=== PATIENT | female | born 1960 | race Caucasian/White ===

== ENCOUNTER 2016-08-01 09:07 | Outpatient (CLI) | payer BC | END 2016-08-01 09:08 | disposition home or self-care (01) | DX: Z00.00 Encounter for general adult medical examination without abnormal findings (principal) ==

== ENCOUNTER 2016-10-03 11:45 | Outpatient (CLI) | payer BC | END 2016-10-03 11:46 | disposition home or self-care (01) | DX: N39.0 Urinary tract infection, site not specified (principal) ==

== ENCOUNTER 2016-10-07 21:10 | Outpatient (CLI) | payer BC | END 2016-10-07 21:11 | disposition home or self-care (01) | DX: N39.0 Urinary tract infection, site not specified (principal) ==

== ENCOUNTER 2016-10-26 18:55 | Emergency (ER) | payer BC ==
[2016-10-26] MEDS ORDERED: cefTRIAXone 1 GM in SODIUM CHLORIDE 0.9% MINIBAG 100 ML IV STA (20:31)
[2016-10-26] MEDS ORDERED: SODIUM CHLORIDE 0.9% 500 ML IV ONE (20:32)
[2016-10-26] MEDS ORDERED: cefTRIAXone 1 GM VIAL ONE (20:42)
== END 2016-10-26 21:34 | disposition home or self-care (01) ==
DX: N39.0 Urinary tract infection, site not specified (principal); E27.1 Primary adrenocortical insufficiency; Z98.890 Other specified postprocedural states

== ENCOUNTER 2016-10-28 16:00 | Outpatient (CLI) | payer BC | END 2016-10-28 16:01 | disposition home or self-care (01) | DX: N39.0 Urinary tract infection, site not specified (principal) ==

== ENCOUNTER 2016-10-30 17:34 | Emergency (ER) | payer BC ==
[2016-10-30] MEDS ORDERED: SODIUM CHLORIDE 0.9% 1,000 ML IV ONE ×2 (18:37→19:09)
[2016-10-30] MEDS ORDERED: HYDROCORTISONE SUCCINATE 100 MG/2 ML VIAL IVP STA (18:37)
[2016-10-30] MEDS ORDERED: HYDROmorphone 1 MG/ML SYRINGE IVP STA (18:37)
[2016-10-30] MEDS ORDERED: HYDROmorphone 1 MG/ML SYRINGE ONE (19:09)
[2016-10-30] MEDS ORDERED: HYDROCORTISONE SUCCINATE 100 MG/2 ML VIAL IVP ONE (19:09)
== END 2016-10-30 20:29 | disposition home or self-care (01) ==
DX: R10.30 Lower abdominal pain, unspecified (principal); E27.1 Primary adrenocortical insufficiency; E05.00 Thyrotoxicosis with diffuse goiter without thyrotoxic crisis or storm; J45.909 Unspecified asthma, uncomplicated; M79.7 Fibromyalgia
CPT/HCPCS: 36415; 80053; 81003; 83690; 85025; 96361; 96374; 96375; 99284; J1170

== ENCOUNTER 2016-12-24 14:15 | Outpatient (CLI) | payer BC | END 2016-12-24 14:16 | disposition home or self-care (01) | LOC: LAB.WCP 14:15 | PROVIDERS: ATTEND Family Medicine | DX: N39.0 Urinary tract infection, site not specified (principal) | CPT/HCPCS: 87086 ==

== ENCOUNTER 2017-02-02 11:45 | Outpatient (CLI) | payer BC | END 2017-02-02 11:46 | disposition home or self-care (01) | LOC: LAB.WCP 11:45 | PROVIDERS: ATTEND Family Medicine | DX: N39.0 Urinary tract infection, site not specified (principal) | CPT/HCPCS: 87077; 87086 ==

== ENCOUNTER 2017-03-04 15:04 | Outpatient (CLI) | payer BC | END 2017-03-04 15:05 | disposition home or self-care (01) | LOC: LAB.R 15:04 | PROVIDERS: ATTEND Physician Assistant Medical | DX: N39.0 Urinary tract infection, site not specified (principal) | CPT/HCPCS: 87077; 87086 ==

== ENCOUNTER 2017-03-18 14:47 | Outpatient (CLI) | payer BC ==
[2017-03-18 19:24] LABS: HEMOGLOBIN A1C 0.83 g/dL
== END 2017-03-18 14:48 | disposition home or self-care (01) ==
LOC: LAB.WCP 14:47
PROVIDERS: ATTEND Physician Assistant Medical
DX: E11.9 Type 2 diabetes mellitus without complications (principal)
CPT/HCPCS: 36415; 82043; 83036

== ENCOUNTER 2017-03-25 12:48 | Outpatient (CLI) | payer BC ==
[2017-03-25 13:15] LABS: HCT - HEMATOCRIT 39.7 % (37.0-47.0); HGB - HEMOGLOBIN 13.3 g/dL (12.0-16.0); MEAN CORPUSCULAR HEMOGLOBIN 30.3 pg (27.0-31.0); MEAN CORPUSCULAR HGB CONC 33.5 g/dL (32.0-36.0); MEAN CORPUSCULAR VOLUME 90.4 fL (81.0-99.0); MEAN PLATELET VOLUME 7.5 fL (7.9-10.8); RED BLOOD COUNT 4.4 10^6/uL (4.20-5.40); RED CELL DISTRIBUTION WIDTH 13.4 % (12.0-15.0); WHITE BLOOD COUNT 11.5 x10^3/uL (4.8-10.8)
[2017-03-25 13:25] LABS: CALCIUM 9.4 mg/dL (8.5-10.3); CREATININE 0.8 mg/dL (0.4-1.0); POTASSIUM 3.9 mmol/L (3.5-5.0)
[2017-03-25 14:00] LABS: HEMOGLOBIN A1C 0.75 g/dL
== END 2017-03-25 12:49 | disposition home or self-care (01) ==
LOC: LAB 12:48
PROVIDERS: ATTEND Orthopaedic Surgery
DX: Z01.812 Encounter for preprocedural laboratory examination (principal); R73.9 Hyperglycemia, unspecified
CPT/HCPCS: 36415; 80048; 83036

== ENCOUNTER 2017-05-29 15:30 | Outpatient (CLI) | payer BC ==
--- NOTE | 2017-05-29 17:00 | XRAY Report ---
EXAM: LEFT RIB RADIOGRAPHY EXAM DATE: 05/29/2017 04:09 PM. CLINICAL HISTORY: Contusion injury, left anterior rib pain. COMPARISON: No prior rib x-ray for comparison; chest x-ray on 08/20/2013. TECHNIQUE: 1 view of the chest and 2 views of the ribs. FINDINGS: Bones: No discrete left rib fracture or bone lesion. Lungs: No focal opacities. No pneumothorax. No pleural effusions. Mediastinum: Heart and mediastinal contours are unremarkable. Other: Status post cholecystectomy, disk fusion in the mid lower cervical spine and posterior spinal fusion visualized. IMPRESSION: Negative chest and left rib radiography. [facility] Referring Provider Line: [phone] SITE ID: [id number]
== END 2017-05-29 15:31 | disposition home or self-care (01) ==
LOC: DI 15:30
PROVIDERS: ATTEND Physician Assistant Medical
DX: S20.212A Contusion of left front wall of thorax, initial encounter (principal)

== ENCOUNTER 2017-06-15 10:20 | Outpatient (CLI) | payer BC ==
[2017-06-15 13:21] LABS: CALCIUM 9.3 mg/dL (8.5-10.3); CREATININE 0.8 mg/dL (0.4-1.0); POTASSIUM 4.2 mmol/L (3.5-5.0)
[2017-06-15 13:49] LABS: HEMOGLOBIN A1C 0.66 g/dL
== END 2017-06-15 10:21 | disposition home or self-care (01) ==
LOC: LAB.WCP 10:20
PROVIDERS: ATTEND Physician Assistant Medical
DX: E11.9 Type 2 diabetes mellitus without complications (principal)
CPT/HCPCS: 36415; 80048; 83036

== ENCOUNTER 2018-08-03 08:00 | Outpatient (CLI) | payer BC ==
[2018-08-03 14:02] LABS: BASOPHILS % (AUTO) 0.7 %; EOSINOPHILS # (AUTO) 0.2 10^3/uL (0.0-0.7); EOSINOPHILS % (AUTO) 2.7 %; HGB - HEMOGLOBIN 14.5 g/dL (12.0-16.0); LYMPHOCYTES # (AUTO) 3.4 10^3/uL (1.5-3.5); LYMPHOCYTES % (AUTO) 53.3 %; MEAN CORPUSCULAR HEMOGLOBIN 30.1 pg (27.0-31.0); MEAN CORPUSCULAR HGB CONC 34.4 g/dL (32.0-36.0); MEAN CORPUSCULAR VOLUME 87.5 fL (81.0-99.0); MEAN PLATELET VOLUME 8.5 fL (7.9-10.8); MONOCYTES # (AUTO) 0.5 10^3/uL (0.0-1.0); MONOCYTES % (AUTO) 7.3 %; NEUTROPHILS # (AUTO) 2.3 10^3/uL (1.5-6.6); PLT - PLATELET COUNT 353 10^3/uL (130-450); RED BLOOD COUNT 4.82 10^6/uL (4.20-5.40); WHITE BLOOD COUNT 6.3 x10^3/uL (4.8-10.8)
[2018-08-03 14:06] LABS: ALBUMIN 4.2 g/dL (3.2-5.5); ALBUMIN/GLOBULIN RATIO 1.4 (1.0-2.2); ALKALINE PHOSPHATASE 75 IU/L (42-121); ALT ALANINE AMINOTRANSFERASE 28 IU/L (10-60); AST ASPARTATE AMINOTRANSFERASE 31 IU/L (10-42); BILIRUBIN,TOTAL 0.5 mg/dL (0.2-1.0); BUN - BLOOD UREA NITROGEN 8 mg/dL (6-20); CALCIUM 9.5 mg/dL (8.5-10.3); CARBON DIOXIDE - CO2 24 mmol/L (21-32); CHLORIDE 105 mmol/L (101-111); CHOL/HDL RATIO 4.5 (<4.4); CHOLESTEROL 229 mg/dL; CREATININE 0.7 mg/dL (0.4-1.0); GFR - MDRD 87 (>89); GLUCOSE 108 mg/dL (70-100); HDL CHOLESTEROL 51 mg/dL; LDL CHOLESTEROL,CALCULATED 149 mg/dL; LDL/HDL RATIO 2.9 (<4.4); SODIUM 138 mmol/L (135-145); TOTAL PROTEIN 7.2 g/dL (6.7-8.2); VLDL CHOLESTEROL 29 mg/dL
[2018-08-03 14:48] LABS: FREE T4 (FREE THYROXINE) 1.06 ng/dL (0.58-1.64)
[2018-08-03 15:24] LABS: HB2 TOTAL 15.6 g/dL; HEMOGLOBIN A1C 0.59 g/dL; HEMOGLOBIN A1C % 5.6 % (4.6-6.2)
== END 2018-08-03 23:59 | disposition home or self-care (01) ==
LOC: LAB.WCP 08:00
PROVIDERS: ATTEND Physician Assistant
DX: R74.8 Abnormal levels of other serum enzymes (principal); E11.9 Type 2 diabetes mellitus without complications; E78.5 Hyperlipidemia, unspecified; E03.9 Hypothyroidism, unspecified
CPT/HCPCS: 36415; 80053; 80061; 82043; 83036; 83721; 84439; 84443; 85025

== ENCOUNTER 2018-10-15 16:56 | Emergency (ER) | payer BC ==
--- NOTE | 2018-10-15 18:19 | ED Physician Documentation ---
PD HPI URI - Stated complaint Stated Complaint: FEVER/SOA - Chief complaint Chief Complaint: Resp - History obtained from History obtained from: Patient - History of Present Illness Timing - onset: Yesterday Timing details: Abrupt onset, Still present Associated symptoms: Fever, Nasal congestion, Dry cough, NVD. No: Sore throat Contributing factors: No: Sick contact Improves by: No: Rest Similar symptoms before: Has not had sx before Review of Systems Constitutional: reports: Fever, Chills Nose: reports: Congestion. denies: Rhinorrhea / runny nose Throat: denies: Sore throat Respiratory: reports: Dyspnea, Cough GI: reports: Nausea, Diarrhea. denies: Abdominal Pain Skin: denies: Rash Neurologic: reports: Generalized weakness. 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 : None HEENT: None Psych: None Musculoskeletal: Fibromyalgia Derm: None - Past Surgical History Past Surgical History: Yes General: Cholecystectomy, Appendectomy Ortho: Spine surgery /SEX CRIMES DETECTIVE: section, Tubal ligation - Present Medications Home Medications: Ambulatory Orders Medication Instructions Recorded Confirmed Albuterol Sulfate [Accuneb] 10/11/13 11/28/14 Fluticasone/Salmeterol [Advair BID 10/11/13 11/28/14 500-50 Diskus] Levothyroxine Sodium [Synthroid] 125 mcg PO DAILY 10/11/13 11/28/14 Lidocaine Patch 5% [Lidoderm Patch] 1 each TOP DAILY PRN 10/11/13 11/28/14 Montelukast [Singulair] 1 tab DAILY 10/11/13 11/28/14 Omeprazole [PriLOSEC] 10 mg PO BIDAC 10/11/13 11/28/14 Promethazine Oral Soln [Phenergan] 0 mg PO ONCE 10/11/13 11/28/14 Duloxetine HCl [Cymbalta] 1 tab DAILY 09/24/14 11/28/14 Hydrocortisone [Cortef] BID 09/24/14 11/28/14 Ipratropium/Albuterol [Combivent PRN 09/24/14 11/28/14 Respimat] Benzonatate [Tessalon Perle] 100 mg PO TID PRN #30 capsule 10/15/18 Dexamethasone [Decadron] 4 mg PO DAILY #5 tablet 10/15/18 Hydrocodone/Acetaminophen [[place] 1 each PO Q6H PRN #15 tablet 10/15/18 5-325 Tablet] Oseltamivir [Tamiflu] 75 mg PO BID #10 capsule 10/15/18 - Allergies Allergies/Adverse Reactions: Allergies Allergy/AdvReac Type Severity Reaction Status Date / Time azithromycin [From Zithromax] Allergy Severe Rash Verified 11/28/14 21:37 codeine Allergy Severe Itching Verified 11/28/14 21:37 nitrofurantoin Allergy Severe Itching Verified 11/28/14 21:37 [From Macrobid] nitrofurantoin Allergy Severe Itching Verified 11/28/14 21:37 macrocrystalline * [From Macrobid] morphine AdvReac Respiratory Verified 10/15/18 17:01 - Social History Does the pt smoke?: No Smoking Status: Never smoker Does the pt drink ETOH?: No Does the pt have substance abuse?: No - Immunizations Immunizations are current?: No Immunizations: TDAP >10years/unknown - POLST Patient has POLST: No PD ED PE NORMAL - Vitals Vital signs reviewed: Yes - General General: Alert and oriented X 3, Well developed/nourished - HEENT HEENT: Pharynx benign - Neck Neck: Supple, no meningeal sign, No adenopathy - Cardiac Cardiac: RRR, No murmur - Respiratory Respiratory: Clear bilaterally - Abdomen Abdomen: Soft, Non tender - Back Back: No CVA TTP - Derm Derm: Normal color, Warm and dry - Extremities Extremities: Normal ROM s pain, No edema, No calf tenderness / cord - Neuro Neuro: Alert and oriented X 3, No motor deficit, Normal speech Results - Vitals Vitals: Vital Signs - 24 hr 10/15/18 10/15/18 10/15/18 17:00 19:12 19:18 Temperature 36.7 C Heart Rate 111 H 89 Respiratory 20 20 18 Rate Blood Pressure 148/81 H O2 Saturation 95 10/15/18 10/15/18 20:05 20:13 Temperature Heart Rate 93 Respiratory 18 18 Rate Blood Pressure 123/52 L O2 Saturation 98 Oxygen O2 Source Room air - Labs Labs: Laboratory Tests 10/15/18 19:15 Influenza A (Rapid) POSITIVE H Influenza B (Rapid) Negative PD MEDICAL DECISION MAKING - ED course Complexity details: considered differential, d/w patient Departure - Departure Disposition: 01 Home, Self Care Clinical Impression: Influenza A, Chronic use of steroids Exacerbation of asthma Qualifiers: Asthma severity: mild Asthma persistence: intermittent Qualified Code(s): J45.21 - Mild intermittent asthma with (acute) exacerbation Condition: Stable Record reviewed to determine appropriate education?: Yes Instructions: ED Flu Follow-Up: Julia Lazo PA-C [Primary Care Provider] - Prescriptions: Benzonatate [Tessalon Perle] 100 mg PO TID PRN #30 capsule PRN Reason: Cough Dexamethasone [Decadron] 4 mg PO DAILY #5 tablet Hydrocodone/Acetaminophen [[place] 5-325 Tablet] 1 each PO Q6H PRN #15 tablet PRN Reason: Pain Oseltamivir [Tamiflu] 75 mg PO BID #10 capsule Comments: Continue usual medications. Add Tamiflu antiviral for the blunting the flu symptoms. Decadron supplemental steroid daily for 5 more days. Tessalon if needed for cough. Hydrocodone if needed for cough/pain. Continue usual inhaler or nebulizers 4 times a day and extra times as needed over the next week or so. Discharge Date/Time: 10/15/18 20:15
[2018-10-15] MEDS ORDERED: IPRATROPIUM/ALBUTEROL 3 ML NEB INH STA (18:56)
[2018-10-15] MEDS ORDERED: BENZONATATE 100 MG CAPSULE PO STA (18:56)
[2018-10-15] MEDS ORDERED: HYDROcod/ACETAM 5/325 MG TABLET PO STA (18:56)
[2018-10-15] MEDS ORDERED: DEXAMETHASONE 10 MG/ML VIAL PO STA (18:57)
[2018-10-15] MEDS ORDERED: CHERRY SYRUP 10 ML UDC PO ONE (19:13)
[2018-10-15] MEDS ORDERED: cephALEXin 250 MG CAPSULE PO STA (19:32)
[2018-10-15] MEDS ORDERED: OSELTAMIVIR 75 MG CAPSULE PO STA (19:44)
--- NOTE | 2018-10-15 19:55 | XRAY Report ---
Reason: cough and wheezing Procedure Date: 10/15/2018 Accession Number: [id number] / [id number] Procedure: XR - Chest 2 View X-Ray CPT Code: 34885 FULL RESULT: EXAM: CHEST RADIOGRAPHY EXAM DATE: 10/15/2018 07:09 PM. CLINICAL HISTORY: Cough and wheezing. COMPARISON: CHEST 2 VIEW PA/LAT 12/25/2017 11:32 AM. TECHNIQUE: 2 views. FINDINGS: Heart size is normal. No consolidation, pleural effusion, or pneumothorax. Partially visualized postoperative changes to the cervical and lumbar spines. Cholecystectomy clips project over the right upper abdominal quadrant. IMPRESSION: No acute cardiopulmonary findings. [facility]
[2018-10-15 20:06] VITALS: BP 123/52
== END 2018-10-15 20:15 | disposition home or self-care (01) ==
LOC: ED 16:56
DX: J10.1 Influenza due to other identified influenza virus with other respiratory manifestations (principal); J45.21 Mild intermittent asthma with (acute) exacerbation; Z79.52 Long term (current) use of systemic steroids
CPT/HCPCS: 71046; 87275; 87276; 94640; 99283; A9270

== ENCOUNTER 2019-04-06 08:00 | Outpatient (CLI) | payer BC ==
[2019-04-06 18:33] LABS: BUN - BLOOD UREA NITROGEN 10 mg/dL (6-20); CALCIUM 9.6 mg/dL (8.5-10.3); CARBON DIOXIDE - CO2 25 mmol/L (21-32); CHLORIDE 98 mmol/L (101-111); CHOL/HDL RATIO 3.7 (<4.4); CHOLESTEROL 219 mg/dL; CREATININE 0.8 mg/dL (0.4-1.0); GFR - MDRD 74 (>89); GLUCOSE 95 mg/dL (70-100); HDL CHOLESTEROL 60 mg/dL; LDL CHOLESTEROL,CALCULATED 136 mg/dL; LDL/HDL RATIO 2.3 (<4.4); SODIUM 138 mmol/L (135-145); VLDL CHOLESTEROL 23 mg/dL
[2019-04-06 18:37] LABS: HB2 TOTAL 15.2 g/dL; HEMOGLOBIN A1C 0.59 g/dL; HEMOGLOBIN A1C % 5.7 % (4.6-6.2)
== END 2019-04-06 23:59 | disposition home or self-care (01) ==
LOC: LAB.WCP 08:00
PROVIDERS: ATTEND Physician Assistant Medical
DX: E11.9 Type 2 diabetes mellitus without complications (principal); E03.9 Hypothyroidism, unspecified
CPT/HCPCS: 36415; 80048; 80061; 83036; 83721; 84443

== ENCOUNTER 2019-09-08 08:00 | Outpatient (CLI) | payer BC ==
[2019-09-08 18:45] LABS: HEMOGLOBIN A1C 0.59 g/dL; HEMOGLOBIN A1C % 5.7 % (4.6-6.2)
== END 2019-09-08 23:59 | disposition home or self-care (01) ==
LOC: LAB.WCP 08:00
PROVIDERS: ATTEND Physician Assistant Medical
DX: E11.9 Type 2 diabetes mellitus without complications (principal)
CPT/HCPCS: 36415; 83036

== ENCOUNTER 2019-10-12 17:12 | Outpatient (CLI) | payer BC | END 2019-10-12 17:13 | disposition home or self-care (01) | LOC: COV 17:12 | PROVIDERS: ATTEND Family Medicine | DX: R50.9 Fever, unspecified (principal) ==

== ENCOUNTER 2019-12-05 08:00 | Outpatient (CLI) | payer BC ==
[2019-12-05 14:51] LABS: HB2 TOTAL 14.7 g/dL; HEMOGLOBIN A1C 0.53 g/dL; HEMOGLOBIN A1C % 5.4 % (4.6-6.2)
[2019-12-05 14:59] LABS: ALBUMIN/GLOBULIN RATIO 1.4 (1.0-2.2); ALKALINE PHOSPHATASE 64 IU/L (42-121); ALT ALANINE AMINOTRANSFERASE 20 IU/L (10-60); AST ASPARTATE AMINOTRANSFERASE 25 IU/L (10-42); BILIRUBIN,TOTAL 0.5 mg/dL (0.2-1.0); BUN - BLOOD UREA NITROGEN 11 mg/dL (6-20); CALCIUM 9.5 mg/dL (8.5-10.3); CARBON DIOXIDE - CO2 25 mmol/L (21-32); CHLORIDE 107 mmol/L (101-111); CHOL/HDL RATIO 2.4 (<4.4); CHOLESTEROL 139 mg/dL; CREATININE 0.7 mg/dL (0.4-1.0); GLUCOSE 86 mg/dL (70-100); HDL CHOLESTEROL 59 mg/dL; LDL CHOLESTEROL,CALCULATED 61 mg/dL; SODIUM 140 mmol/L (135-145); TOTAL PROTEIN 6.8 g/dL (6.7-8.2); VLDL CHOLESTEROL 19 mg/dL
== END 2019-12-05 23:59 | disposition home or self-care (01) ==
LOC: LAB.WCP 08:00
PROVIDERS: ATTEND Physician Assistant Medical
DX: E11.9 Type 2 diabetes mellitus without complications (principal)
CPT/HCPCS: 36415; 80053; 80061; 83036; 83721

== ENCOUNTER 2020-05-21 16:26 | Outpatient (CLI) | payer BC | END 2020-05-21 16:27 | disposition home or self-care (01) | LOC: COV 16:26 | PROVIDERS: ATTEND Family Medicine | DX: R05 Cough (principal); Z20.828 Contact with and (suspected) exposure to other viral communicable diseases; R68.83 Chills (without fever); R53.83 Other fatigue; R09.81 Nasal congestion; J02.9 Acute pharyngitis, unspecified; R43.9 Unspecified disturbances of smell and taste; R11.2 Nausea with vomiting, unspecified; M79.10 Myalgia, unspecified site ==

== ENCOUNTER 2020-05-23 10:10 | Emergency (ER) | payer BC ==
[2020-05-23] MEDS ORDERED: ACETAMINOPHEN 325 MG TABLET PO STA (10:34)
--- NOTE | 2020-05-23 10:36 | ED Physician Documentation ---
PD HPI DYSPNEA - Stated complaint Stated Complaint: CHEST PX, SOA, FEVER - Chief complaint Chief Complaint: Resp - History obtained from History obtained from: Patient - Additional information Additional information: 59-year-old woman with history of pneumonitis, asthma presents with 2 weeks of shortness of breath, dry cough, particularly bad over the last 3 or 4 days. She reports low-grade fevers in the 99 range. Cough is without production. She has central chest pain starting last night and constant. Nonradiating. Not worse with exertion. Denies pedal edema or calf pain. Review of Systems Ten Systems: 10 systems reviewed and negative Constitutional: reports: Fever, Chills, Fatigue Nose: denies: Rhinorrhea / runny nose Throat: denies: Sore throat Cardiac: reports: Chest pain / pressure. denies: Palpitations Respiratory: reports: Dyspnea, Cough. 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: section, Tubal ligation - Present Medications Home Medications: Ambulatory Orders Medication Instructions Recorded Confirmed Albuterol Sulfate [Accuneb] 10/11/13 11/28/14 Fluticasone/Salmeterol [Advair BID 10/11/13 11/28/14 500-50 Diskus] Levothyroxine Sodium [Synthroid] 125 mcg PO DAILY 10/11/13 11/28/14 Lidocaine Patch 5% [Lidoderm Patch] 1 each TOP DAILY PRN 10/11/13 11/28/14 Montelukast [Singulair] 1 tab DAILY 10/11/13 11/28/14 Omeprazole [PriLOSEC] 10 mg PO BIDAC 10/11/13 11/28/14 Promethazine Oral Soln [Phenergan] 0 mg PO ONCE 10/11/13 11/28/14 Duloxetine HCl [Cymbalta] 1 tab DAILY 09/24/14 11/28/14 Hydrocortisone [Cortef] BID 09/24/14 11/28/14 Ipratropium/Albuterol [Combivent PRN 09/24/14 11/28/14 Respimat] Benzonatate [Tessalon Perle] 100 mg PO TID PRN #30 capsule 10/15/18 Hydrocodone/Acetaminophen [[place] 1 each PO Q6H PRN #15 tablet 10/15/18 5-325 Tablet] Oseltamivir [Tamiflu] 75 mg PO BID #10 capsule 10/15/18 dexAMETHasone [Decadron] 4 mg PO DAILY #5 tablet 10/15/18 Doxycycline Hyclate 100 mg PO BID #14 tablet. 05/23/20 Hydrocodone/Acetaminophen 1 - 2 tab PO Q6H PRN #15 tablet 05/23/20 [Hydrocodone-Acetamin 5-325 mg] predniSONE [Deltasone] 20 mg PO [id number] #21 tab 05/23/20 - Allergies Allergies/Adverse Reactions: Allergies Allergy/AdvReac Type Severity Reaction Status Date / Time azithromycin [From Zithromax] Allergy Severe Rash Verified 11/28/14 21:37 codeine Allergy Severe Itching Verified 11/28/14 21:37 nitrofurantoin Allergy Severe Itching Verified 11/28/14 21:37 [From Macrobid] nitrofurantoin Allergy Severe Itching Verified 11/28/14 21:37 macrocrystalline * [From Macrobid] grass pollen Allergy Unknown Verified 05/23/20 10:18 morphine AdvReac Respiratory Verified 10/15/18 17:01 - Social History Does the pt smoke?: No Smoking Status: Never smoker Does the pt drink ETOH?: No Does the pt have substance abuse?: No - Immunizations Immunizations are current?: No Immunizations: TDAP >10years/unknown - POLST Patient has POLST: No PD ED PE NORMAL - Vitals Vital signs reviewed: Yes - General General: Alert and oriented X 3, No acute distress - HEENT HEENT: PERRL, EOMI - Neck Neck: Supple, no meningeal sign, No bony TTP - Cardiac Cardiac: RRR, No murmur - Respiratory Respiratory: No respiratory distress, Clear bilaterally - Abdomen Abdomen: Non tender - Back Back: No spinal TTP - Extremities Extremities: No edema, No calf tenderness / cord - Neuro Neuro: Alert and oriented X 3, Normal speech Results - Vitals Vitals: Vital Signs - 24 hr 05/23/20 05/23/20 10:13 11:49 Temperature 37.1 C 37.2 C Heart Rate 95 80 Respiratory 20 18 Rate Blood Pressure 133/82 H 137/50 H O2 Saturation 99 97 Oxygen O2 Source Room air - EKG (time done) 1016 Rate: Rate (enter#) (88) Rhythm: NSR [place]: Normal Intervals: Normal CT QRS: Normal Ischemia: Normal ST segments Computer interpretation: Agree with computer - Labs Labs: Laboratory Tests 05/23/20 05/23/20 05/23/20 10:49 10:49 10:49 WBC 8.0 RBC 4.86 Hgb 15.0 Hct 43.5 MCV 89.5 MCH 30.9 MCHC 34.5 RDW 12.2 Plt Count 339 MPV 9.6 Neut # (Auto) 5.5 Lymph # (Auto) 1.5 [place] # (Auto) 0.8 Eos # (Auto) 0.1 Baso # (Auto) 0.1 Absolute Nucleated RBC 0.00 Nucleated RBC % 0.0 D-Dimer Sodium 140 Potassium 4.0 Chloride 104 Carbon Dioxide 23 Anion Gap 13.0 BUN 13 Creatinine 0.7 Estimated GFR (MDRD) 86 L Glucose 106 H Calcium 9.5 Total Bilirubin 0.7 AST 31 ALT 30 Alkaline Phosphatase 68 Troponin I High Sens < 2.3 L Total Protein 7.4 Albumin 4.2 Globulin 3.2 Albumin/Globulin Ratio 1.3 Lipase 49 Nasal Adenovirus (PCR) Nasal B. parapertussis DNA (PCR) Nasal Coronavir 229E PCR Nasal Coronavir HKU1 PCR Nasal Coronavir NL63 PCR Nasal Coronavir OC43 PCR Nasal Enterovir/Rhinovir PCR Nasal Influenza B PCR Nasal Influenza A PCR Nasal Parainfluen 1 PCR Nasal Parainfluen 2 PCR Nasal Parainfluen 3 PCR Nasal Parainfluen 4 PCR Nasal RSV (PCR) Nasal B.pertussis DNA PCR Nasal C.pneumoniae (PCR) [place] Human Metapneumo PCR Nasal M.pneumoniae (PCR) Nasal SARS-CoV-2 (PCR) 05/23/20 05/23/20 10:49 10:49 WBC RBC Hgb Hct MCV MCH MCHC RDW Plt Count MPV Neut # (Auto) Lymph # (Auto) [place] # (Auto) Eos # (Auto) Baso # (Auto) Absolute Nucleated RBC Nucleated RBC % D-Dimer 283.0 H Sodium Potassium Chloride Carbon Dioxide Anion Gap BUN Creatinine Estimated GFR (MDRD) Glucose Calcium Total Bilirubin AST ALT Alkaline Phosphatase Troponin I High Sens Total Protein Albumin Globulin Albumin/Globulin Ratio Lipase Nasal Adenovirus (PCR) NOT DETECTED Nasal B. parapertussis DNA (PCR) NOT DETECTED Nasal Coronavir 229E PCR NOT DETECTED Nasal Coronavir HKU1 PCR NOT DETECTED Nasal Coronavir NL63 PCR NOT DETECTED Nasal Coronavir OC43 PCR NOT DETECTED Nasal Enterovir/Rhinovir PCR NOT DETECTED Nasal Influenza B PCR NOT DETECTED Nasal Influenza A PCR NOT DETECTED Nasal Parainfluen 1 PCR NOT DETECTED Nasal Parainfluen 2 PCR NOT DETECTED Nasal Parainfluen 3 PCR NOT DETECTED Nasal Parainfluen 4 PCR NOT DETECTED Nasal RSV (PCR) NOT DETECTED Nasal B.pertussis DNA PCR NOT DETECTED Nasal C.pneumoniae (PCR) NOT DETECTED [place] Human Metapneumo PCR NOT DETECTED Nasal M.pneumoniae (PCR) NOT DETECTED Nasal SARS-CoV-2 (PCR) NOT DETECTED PD MEDICAL DECISION MAKING - ED course ED course: D-dimer noted, but age-adjusted this corresponds to 285 mcg/L and VTE is unlikely. Remainder of her work-up was negative with negative bio fire. Seems like garden-variety bronchitis and will treat for same in this otherwise immunocompromised woman. Departure - Departure Disposition: 01 Home, Self Care Clinical Impression: Bronchitis Condition: Good Record reviewed to determine appropriate education?: Yes Instructions: ED Upper Resp Infec Abx Tx Prescriptions: predniSONE [Deltasone] 20 mg PO [id number] #21 tab Doxycycline Hyclate 100 mg PO BID #14 tablet. Hydrocodone/Acetaminophen [Hydrocodone-Acetamin 5-325 mg] 1 - 2 tab PO Q6H PRN #15 tablet PRN Reason: Pain Comments: Call your doctor to arrange a follow-up appointment, make the next available appointment. In the interim, return anytime if worse or if new symptoms develop.
--- NOTE | 2020-05-23 10:52 | XRAY Report ---
PROCEDURE: Chest 1 View X-Ray INDICATIONS: Chest Pain TECHNIQUE: One view of the chest was acquired. COMPARISON: 10/15/2018 FINDINGS: Surgical changes and devices: Fixation hardware in the cervical spine is stable. Lungs and pleura: No pleural effusions or pneumothorax. Lungs are clear. Mediastinum: Mediastinal contours appear normal. Heart size is normal. Bones and chest wall: No suspicious bony lesions. Overlying soft tissues appear unremarkable. IMPRESSION: No acute cardiopulmonary disease process. Reviewed by: Bekah Vieyra MD, PhD on 05/23/2020 10:51 AM [facility] Approved by: Bekah Vieyra MD, PhD on 05/23/2020 10:51 AM [facility] Station ID: [id number]
[2020-05-23 10:56] LABS: BASOPHILS # (AUTO) 0.1 10^3/uL (0.0-0.1); BASOPHILS % (AUTO) 0.8 %; EOSINOPHILS # (AUTO) 0.1 10^3/uL (0.0-0.7); EOSINOPHILS % (AUTO) 1.6 %; LYMPHOCYTES # (AUTO) 1.5 10^3/uL (1.5-3.5); LYMPHOCYTES % (AUTO) 18.5 %; MEAN CORPUSCULAR HEMOGLOBIN 30.9 pg (27.0-31.0); MEAN CORPUSCULAR HGB CONC 34.5 g/dL (32.0-36.0); MEAN CORPUSCULAR VOLUME 89.5 fL (81.0-99.0); MEAN PLATELET VOLUME 9.6 fL (7.9-10.8); MONOCYTES # (AUTO) 0.8 10^3/uL (0.0-1.0); MONOCYTES % (AUTO) 10.1 %; NEUTROPHILS # (AUTO) 5.5 10^3/uL (1.5-6.6); NEUTROPHILS % (AUTO) 68.7 %; PLT - PLATELET COUNT 339 10^3/uL (130-450); RED BLOOD COUNT 4.86 10^6/uL (4.20-5.40); RED CELL DISTRIBUTION WIDTH 12.2 % (12.0-15.0)
[2020-05-23 11:10] LABS: ALBUMIN 4.2 g/dL (3.2-5.5); ALBUMIN/GLOBULIN RATIO 1.3 (1.0-2.2); BILIRUBIN,TOTAL 0.7 mg/dL (0.2-1.0); CALCIUM 9.5 mg/dL (8.5-10.3); CREATININE 0.7 mg/dL (0.4-1.0); TOTAL PROTEIN 7.4 g/dL (6.7-8.2)
[2020-05-23 11:50] VITALS: BP 137/50
[2020-05-23 11:50] LABS: C. PNEUMONIAE- RESP PCR PANEL NOT DETECTED
== END 2020-05-23 12:12 | disposition home or self-care (01) ==
LOC: ED 10:10
DX: J40 Bronchitis, not specified as acute or chronic (principal); R07.9 Chest pain, unspecified; Z20.828 Contact with and (suspected) exposure to other viral communicable diseases
CPT/HCPCS: 0202U; 36415; 71045; 80053; 83690; 84484; 85025; 85379; 93005; 99284; 99285; A9270

== ENCOUNTER 2020-06-04 07:00 | Outpatient (CLI) | payer BC ==
--- NOTE | 2020-06-04 16:37 | XRAY Report ---
PROCEDURE: Cervical Spine Complete INDICATIONS: NECK PAIN TECHNIQUE: 4 view(s) of the cervical spine were acquired. COMPARISON: MRI cervical spine 03/14/2015 FINDINGS: Bones: No fractures or dislocations to the C7-T1 level. The lateral masses of C1 appear intact on t he odontoid view. No suspicious bony lesions. Anterior fusion is present at C4-5, C5-6, C6-7. There is overall appearance of straightening of normal cervical curvature. There is minimal retrolisthesis of C3 on C4, C4 on C5. Multilevel uncovertebral hypertrophy is present. Anterior osteophytes are pre sent. Multilevel degenerative disc space narrowing is also present. Soft tissues: No prevertebral soft tissue swelling. IMPRESSION: Multilevel degenerative changes as well as anterior fusion as above. Reviewed by: Ramona Hensley MD on 06/04/2020 4:35 PM PST Approved by: Ramona Hensley MD on 06/04/2020 4:35 PM PST Station ID: [id number]
== END 2020-06-04 23:59 | disposition home or self-care (01) ==
LOC: DI.N 07:00
PROVIDERS: ATTEND Family Medicine
DX: M43.12 Spondylolisthesis, cervical region (principal); M47.812 Spondylosis without myelopathy or radiculopathy, cervical region; M50.30 Other cervical disc degeneration, unspecified cervical region; Z98.1 Arthrodesis status
CPT/HCPCS: 72050

== ENCOUNTER 2020-06-04 14:58 | Outpatient (CLI) | payer BC | END 2020-06-04 14:59 | disposition home or self-care (01) | LOC: DI.N 14:58 | PROVIDERS: ATTEND Family Medicine | DX: Z53.9 Procedure and treatment not carried out, unspecified reason (principal) ==

== ENCOUNTER 2020-07-09 08:52 | Outpatient (CLI) | payer BC ==
[2020-07-09 11:57] LABS: BASOPHILS % (AUTO) 0.8 %; EOSINOPHILS # (AUTO) 0.2 10^3/uL (0.0-0.7); EOSINOPHILS % (AUTO) 3.9 %; HGB - HEMOGLOBIN 13.7 g/dL (12.0-16.0); LYMPHOCYTES # (AUTO) 1.8 10^3/uL (1.5-3.5); LYMPHOCYTES % (AUTO) 36.1 %; MEAN CORPUSCULAR HEMOGLOBIN 30.2 pg (27.0-31.0); MEAN CORPUSCULAR HGB CONC 32.5 g/dL (32.0-36.0); MEAN CORPUSCULAR VOLUME 93.2 fL (81.0-99.0); MEAN PLATELET VOLUME 10.1 fL (7.9-10.8); MONOCYTES # (AUTO) 0.5 10^3/uL (0.0-1.0); MONOCYTES % (AUTO) 10.1 %; NEUTROPHILS # (AUTO) 2.4 10^3/uL (1.5-6.6); NEUTROPHILS % (AUTO) 48.7 %; PLT - PLATELET COUNT 306 10^3/uL (130-450); RED BLOOD COUNT 4.53 10^6/uL (4.20-5.40); RED CELL DISTRIBUTION WIDTH 12.5 % (12.0-15.0); WHITE BLOOD COUNT 4.9 x10^3/uL (4.8-10.8)
[2020-07-09 12:15] LABS: ALBUMIN/GLOBULIN RATIO 1.3 (1.0-2.2); ALKALINE PHOSPHATASE 66 IU/L (42-121); ALT ALANINE AMINOTRANSFERASE 22 IU/L (10-60); AST ASPARTATE AMINOTRANSFERASE 21 IU/L (10-42); BILIRUBIN,TOTAL 0.4 mg/dL (0.2-1.0); BUN - BLOOD UREA NITROGEN 11 mg/dL (6-20); CALCIUM 9.1 mg/dL (8.5-10.3); CARBON DIOXIDE - CO2 28 mmol/L (21-32); CHLORIDE 104 mmol/L (101-111); CHOL/HDL RATIO 2.7 (<4.4); CHOLESTEROL 166 mg/dL; CREATININE 0.7 mg/dL (0.4-1.0); GLUCOSE 90 mg/dL (70-100); HDL CHOLESTEROL 62 mg/dL; LDL CHOLESTEROL,CALCULATED 83 mg/dL; LDL/HDL RATIO 1.3 (<4.4); SODIUM 140 mmol/L (135-145); VLDL CHOLESTEROL 21 mg/dL
[2020-07-09 12:51] LABS: CREATININE,URINE 179.1 mg/dL; MICROALBUM/CREATININE RATIO,UR 7.8 ug/mg (<30.0); MICROALBUMIN,URINE 1.4 mg/dL (0-300.0)
[2020-07-09 14:11] LABS: HEMOGLOBIN A1c% 5.7 % (4.27-6.07)
== END 2020-07-09 08:53 | disposition home or self-care (01) ==
LOC: LAB.N 08:52
PROVIDERS: ATTEND Physician Assistant Medical
DX: E11.9 Type 2 diabetes mellitus without complications (principal); J45.909 Unspecified asthma, uncomplicated; E03.9 Hypothyroidism, unspecified
CPT/HCPCS: 36415; 80048; 80053; 80061; 82043; 82570; 83036; 83721; 84443; 85025

== ENCOUNTER 2020-07-16 13:28 | Outpatient (CLI) | payer BC ==
--- NOTE | 2020-07-17 12:51 | Mammography Report ---
BILATERAL DIGITAL SCREENING MAMMOGRAM 3D/2D: 07/16/2020 CLINICAL: Routine screening. Comparison is made to exams dated: 01/02/2015 mammogram and 10/19/2013 mammogram - [facility]. There are scattered fibroglandular elements in both breasts. No significant masses, calcifications, or other findings are seen in either breast. There has been no significant interval change. IMPRESSION: NEGATIVE There is no mammographic evidence of malignancy. A 1 year screening mammogram is recommended. This exam was interpreted at Station ID: [id number]. NOTE: For mammograms, a report in lay terms will be sent to the patient. Approximately 15% of breast malignancies will not be visualized mammographically. In the management of a palpable breast mass, a negative mammogram must not discourage biopsy of a clinically suspicious lesion. Electronically Signed By: Caden hood/[email or web address]:07/16/2020 18:17:07 ACR BI-RADS Category 1: Negative 3341F PARENCHYMAL PATTERN: (A) - The breast(s) demonstrate(s) scattered fibroglandular densities. BI-RADS CATEGORY: (1) - 1 RECOMMENDATION: (ANNUAL) - Recommend routine annual screening mammography. [id number] 1 year screening LATERALITY: (B)
== END 2020-07-16 13:29 | disposition home or self-care (01) ==
LOC: DI.N 13:28
DX: Z12.31 Encounter for screening mammogram for malignant neoplasm of breast (principal)

== ENCOUNTER 2020-08-20 06:47 | Day surgery (SDC) | payer BC ==
[2020-08-20] MEDS ORDERED: LACTATED RINGERS 1,000 ML IV ONE ×2 (06:51→09:05)
[2020-08-20] MEDS ORDERED: MIDAZOLAM 2 MG/2 ML VIAL ONE ×3 (07:36→08:55)
[2020-08-20] MEDS ORDERED: fentaNYL 250 MCG/5 ML VIAL ONE (07:37)
[2020-08-20 10:07] VITALS: BP 134/58
== END 2020-08-20 06:48 | disposition home or self-care (01) ==
LOC: SDS 06:47
PROVIDERS: ATTEND Internal Medicine Gastroenterology
PROC: 0DBN8ZZ Excision of Sigmoid Colon, Via Natural or Artificial Opening Endoscopic (ICD-10-PCS; 2020-08-20)
PROC: 0DBP8ZZ Excision of Rectum, Via Natural or Artificial Opening Endoscopic (ICD-10-PCS; principal; 2020-08-20 08:15)
DX: Z12.11 Encounter for screening for malignant neoplasm of colon (principal); K63.5 Polyp of colon; K62.1 Rectal polyp; K58.9 Irritable bowel syndrome, unspecified
CPT/HCPCS: 45380; J3010; J7120

== ENCOUNTER 2020-09-11 09:24 | Emergency (ER) | payer BC ==
--- NOTE | 2020-09-11 09:56 | ED Physician Documentation ---
PD HPI BACK PAIN - Stated complaint Stated Complaint: BACK PX - Chief complaint Chief Complaint: Back Pain - History obtained from History obtained from: Patient - History of Present Illness Timing - onset: How many days ago (3) Timing - duration: Days (3) Timing - details: Gradual onset, Waxing and waning (worse with cough and with deep breathing.) Location: Upper, Left Quality: Pain, Sharp, Aching Associated symptoms: Fever (felt feverish and with low fevers the past 3 days. Cough with some sputum. Pain with breathing and cough left thoracic back. No rash.). No: Weakness, Numbness Improves with: Rest Worsened by: Movement, Twisting, Other (breathing and cough). No: Palpation Contributing factors: No: Lifting, Twisting, Trauma Similar symptoms before: Has not had sx before Review of Systems Constitutional: reports: Fever, Myalgias, Fatigue. denies: Chills Nose: reports: Congestion. denies: Rhinorrhea / runny nose Throat: denies: Sore throat Cardiac: reports: Chest pain / pressure. 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: section, Tubal ligation - Present Medications Home Medications: Ambulatory Orders Medication Instructions Recorded Confirmed Albuterol Sulfate [Accuneb] 1 puffs INH PRN PRN 10/11/13 08/20/20 Fluticasone/Salmeterol [Advair 1 puffs INH PRN PRN 10/11/13 08/20/20 500-50 Diskus] Montelukast [Singulair] 1 tab PO DAILY 10/11/13 08/20/20 Omeprazole [PriLOSEC] 20 mg PO BIDAC 10/11/13 08/20/20 Promethazine Oral Soln [Phenergan] 0 mg PO ONCE PRN 10/11/13 08/17/20 Hydrocortisone [Cortef] 30 mg PO BID 09/24/14 08/20/20 Hydrocodone/Acetaminophen 1 - 2 tab PO Q6H PRN #15 tablet 05/23/20 08/20/20 [Hydrocodone-Acetamin 5-325 mg] Amitriptyline HCl 50 mg PO DAILY 08/17/20 08/20/20 Atorvastatin [Lipitor] 10 mg PO DAILY 08/17/20 08/20/20 Cholecalciferol [Vitamin D3] 4,000 unit PO DAILY 08/17/20 08/20/20 Diphenoxylate/Atropine [Lomotil] 1 each PO ONCE 08/17/20 08/17/20 Hyoscyamine [Levsin] 0.125 mg SL DAILY PRN 08/17/20 08/17/20 Melatonin 10 mg PO DAILY 08/17/20 08/20/20 Metformin HCl [Metformin ER 500 mg PO DAILY 08/17/20 08/20/20 Gastric] Zinc Gluconate [Zinc] 50 mg PO DAILY 08/17/20 08/20/20 Albuterol Sulf [Ventolin Hfa 1 - 2 puffs INH Q4HR PRN #1 inhaler 09/11/20 Inhaler] Amoxicillin 500 mg PO TID #20 cap 09/11/20 Oxycodone HCl/Acetaminophen 1 each PO Q6H PRN #18 tab 09/11/20 [Percocet 5-325 mg Tablet] dexAMETHasone [Decadron] 4 mg PO DAILY #5 tab 09/11/20 - Allergies Allergies/Adverse Reactions: Allergies Allergy/AdvReac Type Severity Reaction Status Date / Time azithromycin [From Zithromax] Allergy Severe Rash Verified 09/11/20 09:39 codeine Allergy Severe Itching Verified 09/11/20 09:39 nitrofurantoin Allergy Severe Itching Verified 09/11/20 09:39 [From Macrobid] nitrofurantoin Allergy Severe Itching Verified 09/11/20 09:39 macrocrystalline * [From Macrobid] grass pollen Allergy Unknown Verified 09/11/20 09:39 morphine AdvReac Respiratory Verified 09/11/20 09:39 - Social History Does the pt smoke?: No Smoking Status: Never smoker Does the pt drink ETOH?: No Does the pt have substance abuse?: No - Immunizations Immunizations are current?: No Immunizations: TDAP >10years/unknown - POLST Patient has POLST: No PD ED PE NORMAL - Vitals Vital signs reviewed: Yes - General General: Alert and oriented X 3, Well developed/nourished, Other (appears in pain. Movement of trunk okay. Guarding deep breathing. ) - Neck Neck: Supple, no meningeal sign, No adenopathy - Cardiac Cardiac: RRR, No murmur - Respiratory Respiratory: No respiratory distress, Clear bilaterally, Other (no tenderness to palpation. No rash nor sores. ) - Abdomen Abdomen: Soft, Non tender - Derm Derm: Normal color, Warm and dry - Extremities Extremities: No tenderness to palpate, No edema, No calf tenderness / cord - Neuro Neuro: Alert and oriented X 3, No motor deficit, Normal speech Results - Vitals Vitals: Vital Signs - 24 hr 09/11/20 09/11/20 09:29 12:16 Temperature 36.7 C Heart Rate 98 80 Respiratory 18 18 Rate Blood Pressure 136/80 H 123/76 O2 Saturation 100 100 Oxygen O2 Source Room air - Labs Labs: Laboratory Tests 09/11/20 09/11/20 10:30 10:30 WBC 8.4 RBC 4.95 Hgb 15.1 Hct 44.3 MCV 89.5 MCH 30.5 MCHC 34.1 RDW 11.9 L Plt Count 312 MPV 9.6 Neut # (Auto) 6.0 Lymph # (Auto) 1.3 [place] # (Auto) 1.0 Eos # (Auto) 0.1 Baso # (Auto) 0.0 Absolute Nucleated RBC 0.00 Nucleated RBC % 0.0 Sodium 138 Potassium 4.1 Chloride 97 L Carbon Dioxide 25 Anion Gap 16.0 H BUN 15 Creatinine 0.9 Estimated GFR (MDRD) 65 L Glucose 103 H Calcium 9.9 Total Bilirubin 0.8 AST 31 ALT 34 Alkaline Phosphatase 80 Total Protein 7.5 Albumin 4.3 Globulin 3.2 Albumin/Globulin Ratio 1.3 - Rads (name of study) chest xray Radiology: Prelim report reviewed (no focal airspce abnormality), See rad report PD MEDICAL DECISION MAKING - ED course Complexity details: reviewed results, considered differential (cough with pleuritic pain. ), d/w patient Departure - Departure Disposition: 01 Home, Self Care Clinical Impression: Pleurisy Acute bronchitis Qualifiers: Bronchitis organism: unspecified organism Qualified Code(s): J20.9 - Acute bronchitis, unspecified Exacerbation of asthma Qualifiers: Asthma severity: mild Asthma persistence: intermittent Qualified Code(s): J45.21 - Mild intermittent asthma with (acute) exacerbation Condition: Stable Record reviewed to determine appropriate education?: Yes Follow-Up: Julia Lazo PA-C [Primary Care Provider] - Prescriptions: Albuterol Sulf [Ventolin Hfa Inhaler] 1 - 2 puffs INH Q4HR PRN #1 inhaler PRN Reason: Shortness Of Air/Wheezing Amoxicillin 500 mg PO TID #20 cap dexAMETHasone [Decadron] 4 mg PO DAILY #5 tab Oxycodone HCl/Acetaminophen [Percocet 5-325 mg Tablet] 1 each PO Q6H PRN #18 tab PRN Reason: pain Comments: Your chest x-ray is clear without any signs of pneumonia collapsed lung or fluid around the lung. Presume some inflammation around the lung called pleurisy related to your cough and flaring up of your reactive airways. We will treat this with continuing your usual inhaler to 3 puffs 4 times a day for good aeration. Add Decadron steroid for inflammation of the airways in the pleura daily for the next 5 days. This is more likely to have some bacterial component so we will add amoxicillin as directed. Add Tylenol or pain medicines as needed for pain. I would anticipate improvement over the next several days and resolution by 5 to 7 days. Follow-up if not improving in that timeframe. Discharge Date/Time: 09/11/20 12:44
[2020-09-11] MEDS ORDERED: HYDROmorphone 1 MG/ML CARPUJECT IVP STA ×2 (10:18→11:40)
[2020-09-11] MEDS ORDERED: KETOROLAC 30 MG/ML VIAL IVP STA (10:18)
[2020-09-11 10:34] LABS: BASOPHILS % (AUTO) 0.5 %; EOSINOPHILS # (AUTO) 0.1 10^3/uL (0.0-0.7); EOSINOPHILS % (AUTO) 1.6 %; HGB - HEMOGLOBIN 15.1 g/dL (12.0-16.0); LYMPHOCYTES # (AUTO) 1.3 10^3/uL (1.5-3.5); LYMPHOCYTES % (AUTO) 15.1 %; MEAN CORPUSCULAR HEMOGLOBIN 30.5 pg (27.0-31.0); MEAN CORPUSCULAR HGB CONC 34.1 g/dL (32.0-36.0); MEAN CORPUSCULAR VOLUME 89.5 fL (81.0-99.0); MEAN PLATELET VOLUME 9.6 fL (7.9-10.8); MONOCYTES % (AUTO) 11.5 %; NEUTROPHILS % (AUTO) 71.1 %; PLT - PLATELET COUNT 312 10^3/uL (130-450); RED BLOOD COUNT 4.95 10^6/uL (4.20-5.40); RED CELL DISTRIBUTION WIDTH 11.9 % (12.0-15.0); WHITE BLOOD COUNT 8.4 x10^3/uL (4.8-10.8)
[2020-09-11 10:46] LABS: ALBUMIN 4.3 g/dL (3.2-5.5); ALBUMIN/GLOBULIN RATIO 1.3 (1.0-2.2); BILIRUBIN,TOTAL 0.8 mg/dL (0.2-1.0); CALCIUM 9.9 mg/dL (8.5-10.3); CREATININE 0.9 mg/dL (0.4-1.0); TOTAL PROTEIN 7.5 g/dL (6.7-8.2)
--- NOTE | 2020-09-11 11:05 | XRAY Report ---
PROCEDURE: Chest 2 View X-Ray INDICATIONS: cough/ left thoracic pain TECHNIQUE: 2 view(s) of the chest. COMPARISON: 05/23/2020 and 10/15/2018. FINDINGS: Surgical changes and devices: Stable post surgical changes of the cervical spine and lumbar spine. Lungs and pleura: No pleural effusions or pneumothorax. Stable appearance of chronic diffuse inters titial prominence. Lungs are otherwise clear. No focal airspace disease. Mediastinum: Mediastinal contours are normal. Heart size is normal. Bones and chest wall: No suspicious bony abnormalities. Soft tissues appear unremarkable. IMPRESSION: Stable examination of the chest without acute cardiopulmonary abnormalities. No focal ai rspace disease/pneumonia. Reviewed by: Allen Lazo MD on 09/11/2020 11:04 AM PST Approved by: Allen Lazo MD on 09/11/2020 11:04 AM PST Station ID: [id number]
[2020-09-11] MEDS ORDERED: DEXAMETHASONE 10 MG/ML VIAL IVP STA (11:40)
[2020-09-11] MEDS ORDERED: AMOXICILLIN 250 MG CAPSULE PO STA (11:54)
[2020-09-11 12:17] VITALS: BP 123/76
[2020-09-11] MEDS ORDERED: ONDANSETRON ODT 4 MG TABLET TL STA (12:36)
== END 2020-09-11 12:44 | disposition home or self-care (01) ==
LOC: ED 09:24
DX: R09.1 Pleurisy (principal); J20.9 Acute bronchitis, unspecified; J45.21 Mild intermittent asthma with (acute) exacerbation
CPT/HCPCS: 36415; 71046; 80053; 85025; 96374; 96375; 96376; 99284; A9270; J1170; Q0162